=== PATIENT | female | born 1965 | race Two or more races ===

== ENCOUNTER 2024-01-27 12:15 | Day surgery (SDC) | payer MEDICARE, MEDICAID, SELFPAY ==
[2024-01-22 12:33] VITALS: BMI 34.3
[2024-01-27 13:15] VITALS: BP 143/71; PULSE 73; RESP 10; TEMP 36.6; O2SAT 99; BMI 37.1
[2024-01-27 14:00] VITALS: BP 144/71; PULSE 67; RESP 11; O2SAT 100
[2024-01-27] MEDS: DiphenhydrAMINE INJ 50 MG/ML VIAL 25 MG IV (14:08)
[2024-01-27 14:10] VITALS: BP 156/62; PULSE 84; RESP 14; O2SAT 100
[2024-01-27] MEDS: fentaNYL CIT INJ 50 mCg/ML AMP 2ML (ASD USE ONLY) IV (14:13)
[2024-01-27] MEDS: MIDAZOLAM INJ 1 MG/ML VIAL 2 ML (ASD USE ONLY) 2 MG IV (14:13)
[2024-01-27 14:15] VITALS: BP 147/77; PULSE 96; RESP 15; O2SAT 98
[2024-01-27 14:22] VITALS: BP 149/84; PULSE 99; RESP 20; TEMP 36.9; O2SAT 100
--- NOTE | 2024-01-27 16:05 | SUR.PHASEII ---
1422: Pt received for recovery. Pt groggy. Easily aroused. Resp even, unlabored. VS stable. Denies pain. 1450: Pt more awake, alert. Sitting up tolerating po fluids with no difficulty swallowing and no n/v. 1508: Pt fully awake, oriented x3. Pt assisted to restroom. Ambulation steady. Pt dressed and in transport chair. Awaiting transportation. 1545: Transportation available. Pt and friend stated understanding of discharge instructions. Pt discharged from [facility] in stable condition.
== END 2024-01-27 15:45 | disposition home or self-care (01) ==
PROVIDERS: PCP Specialist; Referring Provider Specialist; Visit Provider Specialist
PROC: (CPT 43239; principal; 2024-01-27 13:15)
DX: K29.71 Gastritis, unspecified, with bleeding (principal); I85.11 Secondary esophageal varices with bleeding; K74.60 Unspecified cirrhosis of liver; D62 Acute posthemorrhagic anemia; K76.82 Hepatic encephalopathy; G93.41 Metabolic encephalopathy; K72.10 Chronic hepatic failure without coma; K76.6 Portal hypertension; M79.7 Fibromyalgia; G89.4 Chronic pain syndrome
CPT/HCPCS: 43244; 43239; A4649; J1200; J2250; J3010

== ENCOUNTER 2024-03-06 17:06 | Emergency (ER) | payer MEDICARE, MEDICAID, SELFPAY ==
[2024-03-06 17:07] VITALS: BMI 37.5
--- NOTE | 2024-03-06 17:12 | EKG_ITS ---
[facility] Test Date: 2024-03-06 Pat Name: JESS BAKER Department: Room: - Gender: Female Budget And Policy Analyst: : 1965 Requested By: ED Temporary Provider Order Number: [id number] Reading MD: ED Temporary Provider Measurements Intervals [place] Rate: 74 P: 29 [place]: 144 QRS: -16 QRSD: 93 T: 40 QT: 421 QTc: 467 Interpretive Statements SINUS RHYTHM Compared to ECG 03/06/2024 16:59:12 Ectopic atrial rhythm no longer present T-wave abnormality no longer present Possible ischemia no longer present /[id number]/S0/[id number]
[2024-03-06 17:32] VITALS: BP 102/78; PULSE 69; RESP 20; TEMP 37.3; O2SAT 98
--- NOTE | 2024-03-06 17:41 | XR_ITS ---
Examination: PA lateral chest 2 views TECHNIQUE: Upright PA lateral chest 2 views Exam date and time: March 06, 2024 at 1750 hours INDICATIONS: Chest pain beginning 3:00 PM today. FINDINGS: There is mild prominence of the left ventricle Mild vascular congestion. No lobar pneumonia or pulmonary edema Intact osseous structures IMPRESSION: Mild vascular congestion Mild prominence left ventricle
--- NOTE | 2024-03-06 17:41 | PD.EDRME ---
Rapid Medical Screening Exam RME Arrival date/time: 03/06/24 17:06 58-year-old female presents to the emergency department today with complaint of chest pain Chief Complaint: Chest Pain Vital signs: Vital Signs Temperature 99.2 F 03/06/24 17:32 Pulse Rate 69 03/06/24 17:32 Respiratory Rate 20 03/06/24 17:32 Blood Pressure 102/78 03/06/24 17:32 Pulse Oximetry (%) 98 03/06/24 17:32 Oxygen Delivery Method Room Air 03/06/24 17:32
[2024-03-06 18:03] LABS: Basophils % (Auto) 1 % (0-2.5); Eosinophils # (Auto) 0.1 Thou/mm3 (0.0-0.5); Eosinophils % (Auto) 4 % (0-10); Hematocrit 24.6 % (36.0-46.0); Immature Granulocytes % (Auto) 0 % (0-0); Lymphocytes # (Auto) 0.6 Thou/mm3 (1.0-4.8); Lymphocytes % (Auto) 30 % (10-50); Mean Corpuscular HGB Conc 30.5 g/dl (31.0-37.0); Mean Corpuscular Hemoglobin 26.6 pg (25.0-35.0); Mean Corpuscular Volume 87 fL (80-100); Monocytes # (Auto) 0.4 Thou/mm3 (0.0-0.8); Monocytes % (Auto) 18 % (0-12); Neutrophils % (Auto) 47 % (37-80); Nucleated Red Blood Cell % 0 /100 WBC (0); Platelet Count 206 Thou/mm3 (140-440); RDW Standard Deviation 64.9 fL (36.4-46.3); Red Blood Count 2.82 Miln/mm3 (4.00-5.20)
[2024-03-06 18:14] LABS: Hemoglobin 7.5 g/dL (12.0-16.0)
[2024-03-06 18:20] LABS: White Blood Count 2.1 Thou/mm3 (3.6-11.0)
[2024-03-06 18:24] LABS: B-Type Natriuretic Peptide 84 pg/mL (0-100)
[2024-03-06 18:26] LABS: Alanine Aminotransferase 17 U/L (10-49); Albumin, Serum 3.5 gm/dL (3.5-5.0); Albumin/Globulin Ratio 1.1 (1.2-2.2); Alkaline Phosphatase 116 U/L (46-116); Anion Gap 6 (7-16); Aspartate Amino Transferase 33 U/L (0-34); BUN/Creatinine Ratio 20 Ratio (12-20); Bilirubin,Total 0.7 mg/dL (0.3-1.2); Blood Urea Nitrogen 12 mg/dL (9-23); Calcium 8.5 mg/dL (8.3-10.6); Calcium (Corrected) 8.9 mg/dL (8.5-10.1); Carbon Dioxide 26.8 mMol/L (20.0-31.0); Chloride 107 mMol/L (98-107); Creatinine (Component) 0.6 mg/dL (0.6-1.3); Estimated Creatinine Clearance 98.6 mL/min (>60); Globulin 3.2 gm/dL (2.3-3.5); Glucose 95 mg/dL (74-106); Osmolality,Calculated 279 (275-295); Potassium 3.8 mMol/L (3.4-5.1); Sodium 140 mMol/L (136-145); Total Protein 6.7 gm/dL (5.7-8.2); Troponin I < 0.002 ng/mL (0.0-0.045); eGFR > 60 See Note
[2024-03-06 21:23] VITALS: BP 134/46; PULSE 77; RESP 19; TEMP 36.7; O2SAT 100
[2024-03-06 21:24] VITALS: BP 123/58; PULSE 71; RESP 18; TEMP 36.7; O2SAT 98
--- NOTE | 2024-03-06 21:39 | EDNOTE_ITS ---
ED Chest Pain RME/HPI General Chief Complaint: Chest Pain Stated Complaint: CHEST PAIN SINCE 1500 Time Seen by Provider: 03/06/24 20:32 Arrival date/time: 03/06/24 17:06 RME / HPI RME / HPI narrative: 58-year-old female patient with significant history of liver cirrhosis, came in for evaluation regarding left-sided chest pain. Onset of symptoms since 3 PM today as sudden onset of left-sided chest pain described as pulsating, severity mild. Patient denies any other complaints. Patient is scheduled to do/have esophageal banding this coming Saturday by Dr. Springer. Patient is denying any vomiting blood or blood in the stool or black-colored stool. Related Data Home Medications ?Medication ?Instructions ?Recorded ?Confirmed alprazolam 2 mg tablet 2 mg PO TID PRN Anxiety 01/22/24 01/27/24 furosemide 20 mg tablet 20 mg PO DAILY 01/22/24 01/27/24 hydrocodone 10 mg-acetaminophen 1 tab PO BID PRN Pain 01/22/24 01/27/24 325 mg tablet spironolactone 25 mg tablet 25 mg PO DAILY 01/22/24 01/27/24 Previous Rx's ?Medication ?Instructions ?Recorded ferrous sulfate 325 mg (65 mg 325 mg PO BID #60 tabs 03/06/24 iron) tablet,delayed release pantoprazole 40 mg tablet,delayed 40 mg PO QDAY #30 tabs 03/06/24 release (Protonix) Allergies Allergy/AdvReac Type Severity Reaction Status Date / Time No Known Allergies Allergy Verified 03/06/24 17:11 Review of Systems Review of Systems Narrative Review of Systems: Review of system reviewed and within normal limits except mentioned in HPI ED Exam Narrative Physical exam: VITAL SIGNS: Reviewed. GENERAL APPEARANCE: Alert and interactive, follows commands, no acute distress, HEAD AND FACE: Non-traumatic. ENT: PERRL, pale conjunctiva, eyelid no trauma, Mucous membrane moist. NECK: Supple, nontender, no nuchal rigidity. CHEST: No tenderness, no crepitus, no paradoxical movement, no retractions. LUNGS: Clear, well ventilated, symmetric, no rales, no wheezing, no ronchi, no stridor, good breath sounds bilaterally. HEART: Regular rate, regular rhythm, no murmur, no gallops. ABDOMEN: Soft, positive bowel sounds, nondistended, no guarding, nontender, no rebound, no masses, RECTAL: Deferred. GENITAL: Deferred. NEUROLOGICAL: Gross motor function intact sensory function intact, Appropriate for age. MUSCULOSKELETAL: low back nontender, full range of motion. EXTREMITIES: Nontender, full range of motion. SKIN: Color pale, dry, no rash, no lacerations, no abrasions, no contusions. LYMPHATICS: Deferred. Course Quality Measures none Orders Category Date Time Status EKG (ED ONLY) *Do not use* NOW Care 03/06/24 17:12 Completed Transfuse,blood/blood products ONCE Care 03/06/24 21:43 Active EKG (ED Only) Stat Exams 03/06/24 17:12 Draft XR chest 2V Stat Exams 03/06/24 17:41 Completed BNP [B-Type Natriuretic Peptide] Stat Lab 03/06/24 17:47 Completed CBC Stat Lab 03/06/24 17:47 Completed Comprehensive Metabolic Panel Stat Lab 03/06/24 17:47 Completed Troponin I Stat Lab 03/06/24 17:47 Completed HYDROcodone/APAP 10/325 [[place] 10/325] Med 03/06/24 21:43 Discontinued 1 tab PO X1 ONE Vital Signs Vital signs: Vital Signs Temperature 99.2 F 03/06/24 17:32 Pulse Rate 69 03/06/24 17:32 Respiratory Rate 20 03/06/24 17:32 Blood Pressure 102/78 03/06/24 17:32 Pulse Oximetry (%) 98 03/06/24 17:32 Oxygen Delivery Method Room Air 03/06/24 17:32 Chest Pain MDM Narrative MDM Narrative:: 58-year-old female patient with significant history of liver cirrhosis, came in for evaluation regarding left-sided chest pain. Onset of symptoms since 3 PM today as sudden onset of left-sided chest pain described as pulsating, severity mild. Patient denies any other complaints. Patient is scheduled to do/have esophageal banding this coming Saturday by Dr. Springer. Patient is denying any vomiting blood or blood in the stool or black-colored stool. Patient's hemoglobin was noted to be 7.5. I spoke with Dr. Springer patient's GI specialist, and told me to give patient 2 units of packed RBC and discharged home. Patient apparently was upset. Patient signed AGAINST MEDICAL ADVICE Pt has normal mental status and adequate capacity to make medical decisions. Oriented x 4. The patient refuses further treatment and wants to be discharged. The risks have been explained to the patient, including progression of possible worsening of current disease, worsening illness, chronic pain, permanent disability and . The benefits of evaluation and treatment have also been explained, including the availability and proximity of nurses, physicians, monitoring, diagnostic testing, and treatments. The patient was able to understand and state the risks and benefits of AMA.Patient had the opportunity to ask questions about their medical condition. He left hospital against medical advice. Patient data External records reviewed:: None Clinical information provided by:: none Social determinants that could affect healthcare access:: none Patient has the following chronic illnesses:: Liver cirrhosis How is presenting disease/condition affected by chronic disease/condition?: exacerbated by Evaluation data The following diagnostics were reviewed and interpreted by me:: lab results Lab and/or radiology exams considered but not ordered:: None Interpretation Summary: Patient hemoglobin was noted to be 7.5, hematocrit of 54.6, platelets normal patient's LFTs normal. Medications / Prescriptions Medications or Prescriptions considered but not ordered:: None Medication administrations:: Medication Administration History Discontinued Medications Hydrocodone Bitart/Acetaminophen (Hydrocodone/Apap 10/325 Tab) 1 tab PO X1 ONE Stop: 03/06/24 21:44 Last Admin: 03/06/24 21:55 Dose: 1 tab Documented By: BLAIR 2 units packed RBC, [place] Consultations Consultation(s) initiated? (list below): Yes Consultation #1 (Physician, Specialty, Details): Spoke with Dr. Springer, Dr. Springer thank you Diagnosis Chest Pain Differential Diagnosis: pneumothorax, chest pain and other (Anemia) Most likely diagnosis given after review of the tests above:: Anemia, chest pain, pt Admission Indicated Admission indicated?: not indicated Admission Request Was there a request for admission?: No Disposition Plan Disposition Plan: other (specify) (AMA) Discharge Plan Plan Patient Disposition: Left Against Medical Advice Prescriptions/Referrals Prescriptions/Med Rec: New pantoprazole [Protonix] 40 mg tablet,delayed release (DR/EC) 40 mg PO QDAY Qty: 30 0RF ferrous sulfate 325 mg (65 mg iron) tablet,delayed release (DR/EC) 325 mg PO BID Qty: 60 0RF No Action hydrocodone-acetaminophen 10-325 mg tablet 1 tab PO BID PRN (Reason: Pain) Hold Instructions: Resume on 01/28/24. Patient Comments: TAKE 1 TABLET BY MOUTH TWICE DAILY spironolactone 25 mg tablet 25 mg PO DAILY furosemide 20 mg tablet 20 mg PO DAILY alprazolam 2 mg tablet 2 mg PO TID PRN (Reason: Anxiety) Hold Instructions: Resume on 01/28/24. Patient Comments: TAKE 1 TABLET BY MOUTH THREE TIMES DAILY Referrals: Garrett Springer MD [Primary Care Provider] - In 1 week Problem List Clinical Impression: Chest pain, Anemia Patient/Caregiver Discharge Instructions Print Language: Bhutanese
[2024-03-06] MEDS: HYDROcodone/APAP 10/325 TAB PO (21:55)
--- NOTE | 2024-03-06 22:07 | PC.NURSE ---
PATIENT REQUESTED TO SIGN AMA FORM REFUSING BLOOD TRANSFUSION. PATIENT WAS VERY RUDE AND AGGRESSIVE INSULTING AND YELLING AT THIS NURSE AND ANALIA RN WHEN TRYING TO START A IV LINE FOR TRANSFUSION. PATIENT YELLED, TAKE OUT THE IV NOW OR I WILL PULL OUT MY DAMN SELF! WE TRY TO EXPLAIN TO HER THAT WE ARE JUST TRYING TO FIND A VEIN WHERE THE IV CAN BE PLACED FOR THE BLOOD TRANSFUSION. PATIENT CONTINUE TO BE DISRESPECTFUL TO THIS NURSE AND ANALIA RN. WE EXPLAINED HER THAT WE ARE TRYING TO HELP HER BUT PATIENT REFUSED TO LISTEN. I NOTIFIED PROVIDER THAT PATIENT REFUSED TO HAVE IV PLACED AND WANTS TO SIGN AMA. WHEN I WENT TO HAVE PATIENT SIGN FORM SHE CONTINUE TO INSULT ME AND TALK ABOUT OTHER STAFF. I ASKED TO PLEASE BE RESPECTFUL ABOUT OTHER STAFF AND MYSELF. SHE STATED, I DON'T CARE I AM GOING TO MAKE I COMPLAIN. I ASKED PATIENT TO SIGN AMA FORM SO I COULD WALK OUT DUE TO HER BEING SO DISRESPECTFUL. PROVIDER MARTIN NOTIFIED.
--- NOTE | 2024-03-06 22:14 | PC.NURSE ---
This report writer attempted an IV on Pt in assistance to the assigned RN. Pt was asking for an AC IV but this report writer noticed bruising and swelling on that site. I notified Pt that i would prefer to look in her forearm due to the bruising and swelling. Pt stated she had recently been in [place] admitted for blood clots This report writer failed at the IV and the vein blew up indicative of the pt previously had been on blood thinner. The pt then started yelling at this report writer to take it out, take it out or I will pull it out [place] was still in place while needle was in so this report writer explained to the pt we couldn't simply pull it out due to her being on blood thinner and we had to give it some pressure to avoid the bleeding. The pt refused any other attempts on IV's and stated she would rather refuse treatment. PA and assigned RN notified.
== END 2024-03-06 22:24 | disposition left against medical advice (07) ==
PROVIDERS: Nurse Practitioner Primary Care; Emergency Provider Emergency Medicine; PCP Specialist
DX: D64.9 Anemia, unspecified (principal); R07.89 Other chest pain
CPT/HCPCS: 36415; 71046; 80053; 83880; 84484; 85025; 86850; 86900; 86901; 93005; 99283; A9270

== ENCOUNTER 2024-03-09 09:30 | Day surgery (SDC) | payer MEDICARE, MEDICAID, SELFPAY ==
--- NOTE | 2024-03-06 06:00 | EKG_ITS ---
[facility] Test Date: 2024-03-06 Pat Name: JESS BAKER Department: Room: - Gender: Female Door Operator: CHARMAINE : 1965 Requested By: Campos Pepe Order Number: [id number] Reading MD: Campos Pepe Measurements Intervals [place] Rate: 75 P: 212 MD: 150 QRS: 209 QRSD: 87 T: 210 QT: 390 QTc: 437 Interpretive Statements ECTOPIC ATRIAL RHYTHM POSSIBLE RIGHT VENTRICULAR HYPERTROPHY MODERATE T-WAVE ABNORMALITY, CONSIDER INFERIOR ISCHEMIA No previous ECG available for comparison /store/[id number]/[id number]
[2024-03-09 10:18] VITALS: BP 126/54; PULSE 75; RESP 16; TEMP 36.3; O2SAT 99; BMI 38.5
[2024-03-09] MEDS: SODIUM CHLORIDE 0.9% 500 ML 500 ML 20 ML IV (11:06)
[2024-03-09 11:21] VITALS: BP 96/60; PULSE 96; RESP 23; TEMP 37.1; O2SAT 94
[2024-03-09 11:30] VITALS: BP 98/58; PULSE 89; RESP 18; O2SAT 95
[2024-03-09 11:40] VITALS: BP 120/57; PULSE 84; RESP 17; TEMP 37; O2SAT 97
--- NOTE | 2024-03-09 15:45 | SUR.PHASEII ---
1121: Pt received for recovery via [employer]. Report from Caryn RN and Neisha EQUIP MAINT ENG student. Pt sleepy. Easily aroused with eye opening then drifts back to sleep. Resp even, unlabored. VS stable. No c/o pain, discomfort. 1145: Pt more awake, alert. VS stable. Denies pain. Sitting up tolerating po fluids with no difficulty swallowing and no n/v. 1208: Pt fully awake, oriented x3. Pt was assisted to restroom. Ambulation steady. Pt dressed and in transport chair. Pt and son stated understanding of discharge instructions. Pt discharged from [facility] in stable condition.
== END 2024-03-09 12:08 | disposition home or self-care (01) ==
PROVIDERS: PCP Specialist; Referring Provider Specialist; Visit Provider Specialist
PROC: (CPT 43239; principal; 2024-03-09 09:45)
DX: I85.11 Secondary esophageal varices with bleeding (principal); K74.60 Unspecified cirrhosis of liver; K31.89 Other diseases of stomach and duodenum
CPT/HCPCS: 43244; 80053; 93005; A4649; J7040

== ENCOUNTER → 2024-08-18 | Outpatient (CLI) | payer MEDICARE, MEDICAID, SELFPAY ==
[2024-08-18 17:41] LABS: Basophils % (Auto) 0 % (0-2.5); Eosinophils % (Auto) 1 % (0-10); Hematocrit 36.5 % (36.0-46.0); Hemoglobin 11.2 g/dL (12.0-16.0); Immature Granulocytes % (Auto) 0 % (0-0); Immature Granulocytes Auto 0.01 Thou/mm3 (0.00-0.00); Lymphocytes # (Auto) 0.7 Thou/mm3 (1.0-4.8); Lymphocytes % (Auto) 22 % (10-50); Mean Corpuscular HGB Conc 30.7 g/dl (31.0-37.0); Mean Corpuscular Hemoglobin 25.9 pg (25.0-35.0); Mean Corpuscular Volume 85 fL (80-100); Monocytes # (Auto) 0.3 Thou/mm3 (0.0-0.8); Monocytes % (Auto) 10 % (0-12); Neutrophils # (Auto) 2.1 Thou/mm3 (1.8-7.7); Neutrophils % (Auto) 67 % (37-80); Nucleated Red Blood Cell % 0 /100 WBC (0); Platelet Count 121 Thou/mm3 (140-440); RDW Standard Deviation 60.8 fL (36.4-46.3); Red Blood Count 4.32 Miln/mm3 (4.00-5.20); White Blood Count 3.2 Thou/mm3 (3.6-11.0)
[2024-08-18 17:55] LABS: Alanine Aminotransferase 28 U/L (10-49); Albumin, Serum 3.8 gm/dL (3.5-5.0); Albumin/Globulin Ratio 1.4 (1.2-2.2); Alkaline Phosphatase 105 U/L (46-116); Anion Gap 10 (7-16); Aspartate Amino Transferase 39 U/L (0-34); BUN/Creatinine Ratio 19 Ratio (12-20); Blood Urea Nitrogen 17 mg/dL (9-23); Calcium 8.7 mg/dL (8.3-10.6); Calcium (Corrected) 8.9 mg/dL (8.5-10.1); Carbon Dioxide 24.1 mMol/L (20.0-31.0); Chloride 107 mMol/L (98-107); Creatinine (Component) 0.9 mg/dL (0.6-1.3); Globulin 2.8 gm/dL (2.3-3.5); Glucose 158 mg/dL (74-106); Osmolality,Calculated 285 (275-295); Potassium 3.8 mMol/L (3.4-5.1); Sodium 141 mMol/L (136-145); Total Protein 6.6 gm/dL (5.7-8.2); eGFR > 60 See Note
[2024-08-21 07:03] LABS: HCV RNA, PCR <15 NOT DETECTED IU/mL
[2024-08-24 06:48] LABS: HCV RNA, PCR Log IU <1.18 NOT DETECTED Log IU/mL
== END | disposition home or self-care (01) ==
LOC: COPL 16:02
PROVIDERS: PCP Specialist; Referring Provider Specialist; Visit Provider Specialist
DX: K70.9 Alcoholic liver disease, unspecified (principal); I85.01 Esophageal varices with bleeding; B18.2 Chronic viral hepatitis C
CPT/HCPCS: 36415; 80053; 82105; 85025; 87522

== ENCOUNTER → 2024-09-02 | Outpatient (CLI) | payer MEDICARE, MEDICAID, SELFPAY ==
--- NOTE | 2024-09-02 15:30 | XR_ITS ---
Examination: Abdomen sonogram, Limited Date and time of exam: 2024 1408 hours INDICATIONS: Diagnosis cirrhosis, history cholecystectomy, abdominal pain one week Technique: Real-time avendano scale transabdominal sonographic images of the upper abdomen obtained. Findings: Absent gallbladder Solid structure in the gallbladder fossa 4.1 x 2.6 x 3.0 cm Common bile duct 0.8 cm Pancreatic head 2.4 cm Liver 11.0 cm irregular contour No focal liver lesions Normal hepatopedal portal venous flow IMPRESSION: Recommend CT scan abdomen pelvis intravenous contrast follow-up to exclude solid mass in the gallbladder fossa
== END | disposition home or self-care (01) ==
PROVIDERS: PCP Specialist; Referring Provider Specialist; Visit Provider Specialist
DX: K70.9 Alcoholic liver disease, unspecified (principal); I85.01 Esophageal varices with bleeding; B18.2 Chronic viral hepatitis C
CPT/HCPCS: 76705